=== PATIENT | male | born 1975 | race Caucasian/White ===

== ENCOUNTER 2019-12-16 09:48 | Outpatient (CLI) | payer OTHER ==
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
== END 2019-12-16 09:49 | disposition home or self-care (01) ==
LOC: TBSIIMAG 09:48
PROVIDERS: ATTEND Orthopaedic Surgery
DX: S82.141D Displaced bicondylar fracture of right tibia, subsequent encounter for closed fracture with routine healing (principal); M23.91 Unspecified internal derangement of right knee; S72.301D Unspecified fracture of shaft of right femur, subsequent encounter for closed fracture with routine healing; S76.111A Strain of right quadriceps muscle, fascia and tendon, initial encounter; M17.11 Unilateral primary osteoarthritis, right knee

== ENCOUNTER 2020-02-11 06:54 | Outpatient (CLI) | payer OTHER ==
[2020-02-11 11:16] LABS: #Eosinphils 0.1 10x3/uL (0.0-0.5); #Monocytes 0.6 10x3/uL (0.0-1.1); #Neutrophils 3.1 10x3/uL (1.5-8.4); %Basophils 0.7 % (0.0-2.0); %Lymphocytes 33.8 % (18.0-47.0); %Monocytes 10.1 % (0.0-10.0); %Neutrophils 53.1 % (40.0-75.0); Mean Corpuscular Hemoglobin 28.3 PG (27.0-33.0); Mean Corpuscular Volume 85.7 fl (80.0-100.0); Mean Platelet Volume 10.5 fl (7.4-10.4); Platelet Count 282 10x3/uL (130-400); RBC Distribution Width 12.2 % (11.5-14.5); Red Blood Cell (RBC) Count 4.95 10x6/uL (4.40-5.80); White Blood Cell (WBC) Count 5.9 10x3/uL (4.5-11.0)
[2020-02-11 11:25] LABS: Anion Gap 13 mmol/L (10-20); BUN (Urea Nitrogen) 8 mg/dL (8.9-20.6); Calc. Creatinine Clearance 0 mL/min (70-130); Calcium 8.9 mg/dL (7.8-10.44); Carbon Dioxide 26 mmol/L (22-29); Chloride 100 mmol/L (98-107); Estimated GFR-MDRD Greater than 90; Glucose 209 mg/dL (70-105); Potassium 4.6 mmol/L (3.5-5.1); Sodium 134 mmol/L (136-145)
[2020-02-12 05:48] LABS: SARS-CoV-2 MS2 Positive; SARS-CoV-2 N Gene Negative; SARS-CoV-2 S Gene Negative; SARS-CoV-2 by NAA Not Detected (NotDetected); SARS-CoV-2 orf1ab Negative
--- NOTE | 2020-02-14 07:02 | EKG ---
Test Reason : PREOP Blood Pressure : / mmHG Vent. Rate : 076 BPM Atrial Rate : 076 BPM P-R Int : 180 ms QRS Dur : 092 ms QT Int : 386 ms P-R-T Axes : 037 048 026 degrees QTc Int : 434 ms Normal sinus rhythm Normal ECG No previous ECGs available Confirmed by BEBO CORRIGAN, BRYON ([id number]) on 02/14/2020 7:02:15 AM Referred By: Wesley BORGES Confirmed By:BRYON LAGUNAS MD
== END 2020-02-11 06:55 | disposition home or self-care (01) ==
LOC: LABBT 06:54
PROVIDERS: ATTEND Orthopaedic Surgery
DX: Z01.818 Encounter for other preprocedural examination (principal); Z20.828 Contact with and (suspected) exposure to other viral communicable diseases; S83.206A Unspecified tear of unspecified meniscus, current injury, right knee, initial encounter; S76.111A Strain of right quadriceps muscle, fascia and tendon, initial encounter
CPT/HCPCS: 80048; 85025; 87635; 93005; 93010; U0003

== ENCOUNTER 2020-02-14 07:03 | Day surgery (SDC) | payer OTHER ==
[2020-02-13 10:24] VITALS: BMI 46.2
[2020-02-14] MEDS ORDERED: PROPOFOL 20 ML ONE (07:55)
[2020-02-14] MEDS ORDERED: Fentanyl 100 MCG/2 ML VIAL ONE ×2 (09:34→12:38)
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
[2020-02-14] MEDS ORDERED: Rocuronium Bromide 10 MG/ML (10ML VIAL) ONE (12:40)
[2020-02-14] MEDS ORDERED: Dexamethasone 20 MG/5 ML VIAL ONE (12:40)
[2020-02-14] MEDS ORDERED: Lidocaine 2% w/Epinephrine 1:200K 20 ML VIAL ONE (12:40)
[2020-02-14] MEDS ORDERED: Bupivacaine HCl 0.5%/Epinephrine 1:200,000/PF 30 ml Vial ONE (12:40)
[2020-02-14] MEDS ORDERED: Ondansetron PF 4 MG/2 ML Vial ONE (12:40)
[2020-02-14] MEDS ORDERED: Glycopyrrolate 0.2 MG/ML 5 ML SYRINGE ONE (12:40)
[2020-02-14] MEDS ORDERED: PROPOFOL 200 MG/20 ML VIAL ONE (12:40)
== END 2020-02-14 14:15 | disposition home or self-care (01) ==
LOC: SDC 07:03
PROVIDERS: ATTEND Orthopaedic Surgery
PROC: 0SBC4ZZ Excision of Right Knee Joint, Percutaneous Endoscopic Approach (ICD-10-PCS; principal; 2020-02-14)
PROC: 0SJC0ZZ Inspection of Right Knee Joint, Open Approach (ICD-10-PCS; principal; 2020-02-14)
DX: S76.111A Strain of right quadriceps muscle, fascia and tendon, initial encounter (principal); M23.8X1 Other internal derangements of right knee; M22.41 Chondromalacia patellae, right knee; E11.9 Type 2 diabetes mellitus without complications; I10 Essential (primary) hypertension; F17.200 Nicotine dependence, unspecified, uncomplicated; Z79.84 Long term (current) use of oral hypoglycemic drugs; Z79.899 Other long term (current) drug therapy
CPT/HCPCS: 36416; J0690; J1100; J2405; J2704; J3010